=== PATIENT | female | born 1950 | race Caucasian/White ===

== ENCOUNTER → 2022-07-08 | Outpatient (CLI) | payer MEDICARE, OTHER ==
[~2022-07-08] MED LIST: LEVOTHYROXINE25 MCG PO; MULTIVITAMINS1 EAC1 PO; MYLICON CHEWABL80 MG PO; NITROSTAT0.4 MG SL; OMEPRAZOLE20 MG PO; SOTALOL120 MG PO; VITAMIN D 40400 UNIT PO; XARELTO20 MG PO
== END ==
LOC: LAB 10:56
DX: U07.1 COVID-19 (principal)
CPT/HCPCS: U0002